=== PATIENT | male | born 1975 | race Caucasian/White ===

== ENCOUNTER 2020-02-17 16:40 | Emergency (ER) | payer MEDICAID, SELFPAY ==
[2020-02-17 20:14] VITALS: BP 113/75; PULSE 52; RESP 16; TEMP 36.6; O2SAT 100; BMI 23.8
[2020-02-17 20:29] VITALS: BP 113/75; PULSE 52; RESP 16; TEMP 36.6; O2SAT 100; BMI 23.8
--- NOTE | 2020-02-17 21:30 | CT_ITS ---
EXAMINATION: CT ABDOMEN AND PELVIS WITH CONTRAST CLINICAL INFORMATION: Abdominal pain. History of liver cancer. COMPARISON: MRI from 05/30/2012. TECHNIQUE: Multidetector volumetric images were obtained from the superior aspect of the liver through the pubic symphysis following administration 85 mL of Omnipaque 350 intravenous contrast. Sagittal and coronal reformatted images were obtained on the technologist's workstation. Oral contrast: No This CT examination was performed using dose optimization techniques as appropriate, variously including the following: *Automated exposure control *Adjustment of mA and/or kV according to patient size (this includes techniques or standardized protocols for targeted exams where dose is matched to indication/reason for exam; i.e. extremities or head) *Use of iterative reconstruction technique DLP: 666 mGy-cm FINDINGS: LUNG BASES: The lung bases are clear. Elevated right hemidiaphragm. The visualized cardiac structures are unremarkable. LIVER, GALLBLADDER, AND BILIARY TREE: The patient appears to be status post resection of the right lobe of the liver. Mild intrahepatic biliary ductal dilatation noted. The portal vein is patent. There is a small amount of pneumobilia. No focal hepatic mass identified. There is moderate volume ascites. Additional patchy appearance in the right upper quadrant fat admixed with the ascites could also represent additional fluid versus carcinomatosis. The gallbladder is absent. PANCREAS: Pancreas ductal dilatation noted, measuring 0.5 cm. No focal pancreatic abnormality identified. SPLEEN: The spleen is enlarged measuring 14 cm in CC dimension. No focal lesion. ADRENAL GLANDS: Unremarkable. KIDNEYS AND URETERS: The kidneys are normal in size, shape, and attenuation. No hydronephrosis, hydroureter, or calculi seen. No perinephric stranding. BLADDER: Unremarkable. GASTROINTESTINAL TRACT: The stomach is decompressed with no gross abnormality. Normal caliber small bowel. There is no obstruction. There is a partial colonic resection with right upper quadrant enterocolic anastomosis. Mild wall thickening suggested of the descending and sigmoid colon. No free intraperitoneal air. ABDOMINAL WALL: No significant hernia. Moderate anasarca. LYMPH NODES: Normal. VASCULAR: Normal caliber aorta. Minimal atherosclerotic calcification noted. Varices are seen throughout the abdomen. Paraesophageal varices noted. PELVIC VISCERA: The prostate and seminal vesicles are unremarkable. OSSEOUS STRUCTURES: Nonspecific lucencies are seen scattered in the osseous structures. This is particularly evident in the iliac bones. There are degenerative changes noted at L5-S1 with disc space narrowing and vacuum disc phenomenon. Small osteophytes noted. CT/CT abdomen pelvis w con IMPRESSION: 1. Moderate volume ascites. Partial hepatectomy. Mild intrahepatic biliary ductal dilatation. Pancreatic ductal dilatation. No obstructing lesion is identified. Findings of portal hypertension. 2. There is a somewhat nodular appearance in the right upper quadrant in the area of ascites which could represent additional fluid, although carcinomatosis must be considered. 3. There is mild wall thickening of the left hemicolon. While this could be associated with the portal hypertension, colitis is possible. 4. Nonspecific lucencies are noted in the osseous structures. No priors for comparison. Cannot exclude metastatic disease.
--- NOTE | 2020-02-17 21:33 | ED.ABDPAIN ---
HPI - Abdominal Pain General Chief Complaint: Abdominal Pain Stated Complaint: ABD PAIN Time Seen by Provider: 02/17/20 21:30 History of Present Illness HPI narrative: Patient is a 44-year-old male with a history of liver cancer status post resection at [facility] approximately 2 years ago. Currently not on chemotherapy. Presented today with having 1 day history of nausea with upper abdominal pain. Patient denies any fever or chills. Denies any vomiting. No change in bowel movement. No pain on urination. No coughing or congestion or upper respiratory symptoms. No diaphoresis. Patient from home. Rates the pain as 5/10 nonradiating. No change with food. Related Data Home Medications Medication Instructions Recorded Confirmed Cholestyramine Light PO DAILY 02/18/20 furosemide 40 mg PO DAILY 02/18/20 02/18/20 ursodiol 300 mg PO TID 02/18/20 02/18/20 Previous Rx's Medication Instructions Recorded ondansetron 4 mg PO TID PRN 5 Days #10 tab 02/18/20 Allergies Allergy/AdvReac Type Severity Reaction Status Date / Time cat dander Allergy Mild Sneezing Verified 02/17/20 20:25 dog dander [dogs] Allergy Mild Sneezing Verified 02/17/20 20:24 grass pollen Allergy Mild Sneezing Verified 02/17/20 20:24 Review of Systems Review of Systems Constitutional: No Weight loss, No Fever, No Chills, No Night Sweats, + Fatigue, + Malaise ENT/Mouth: No Hearing loss, No Ear Pain, No Nasal Congestion, No Sinus Pain, No Hoarseness, No sore throat, No Rhinorrhea, No Swallowing Difficulty Eyes: No Eye Pain, No Swelling, No Redness, No Foreign Body, No Discharge, No Vision Changes Cardiovascular: No Chest Pain, No SOB, No Dyspnea on Exertion, No Orthopnea, No Edema, No Palpitations Respiratory: No Cough, No Sputum, No Wheezing, No Smoke Exposure, No Dyspnea Gastrointestinal: Positive Nausea, No Vomiting, No Diarrhea, No Constipation, positive abdominal Pain, No Hematochezia, No Melena Genitourinary: no irregular bleeding, No Dysuria, No Urinary Frequency, No Hematuria, No Urinary Incontinence, No Urgency, No Flank Pain, No Urinary Flow Changes, No Hesitancy Musculoskeletal: No joint pain, No Myalgias, No Joint Swelling Skin: No Skin Lesions, No rash Neuro: No Weakness, No Numbness, No Paresthesias, No Loss of Consciousness, No Dizziness, No Headache Psych: No Anxiety/Panic, No Depression, No SI/HI/AH/VH, No Social Issues, Heme/Lymph: No Bruising, No Bleeding,No Lymphadenopathy Endocrine: No Polyuria, No Polydipsia, No Temperature Intolerance Physical Exam Vital Signs: Vital Signs: Vital Signs Temp Pulse Resp BP Pulse Ox 02/18/20 03:05 56 16 103/63 100 02/18/20 02:00 16 100/60 100 02/18/20 01:14 61 16 102/62 100 02/18/20 00:00 58 16 100/60 99 02/17/20 23:27 53 16 107/68 100 02/17/20 20:29 97.9 F 52 16 113/75 100 02/17/20 20:14 97.9 F 52 16 113/75 100 Body Mass Index 23.8 Appearance: Alert. Oriented X3. No acute distress. Eyes: Pupils equal, round and reactive to light. Positive jaundice ENT: Pharynx normal. Neck: Normal inspection. Neck supple. No lymph nodes noted. No crepitus CVS: Normal heart rate and rhythm. Pulses normal. Normal S1 and S2 Respiratory: No respiratory distress. Breath sounds normal. No Wheezing. No rales Abdomen: Mild epigastric pain with an enlarged liver about 4 fingerbreadths below the costal margin.No rigidity. No distention. good BS x4 Skin: Skin warm and dry. Normal skin color. Normal skin turgor. Extremities: No lower extremity edema. Neurovascular intact to all extremities. No Lacerations. No Rash Neuro: Oriented X 3. No motor deficit. No sensory deficit. Moving all extermities. No slurred speech MDM - Abdominal Pain MDM Narrative Medical decision making narrative: Patient's bilirubin elevated at over 17. Will contact patient's primary oncologist Patient's case discussed with hospitalist team. [place] patient's symptoms is more chronic in nature. Case was also discussed with patient's oncology team at the [facility]. Patient was discharged from [facility] on the . At that time had similar bilirubin. Similar liver function test. They sent him in for possible hernia. CT scan showed no evidence of incarcerated hernia. Patient has no obstruction. No abscess. [facility] feels comfortable following up on an outpatient basis. Will discharge patient home. Lab Data Attestation: I reviewed the patient's lab results. Result diagrams: 02/18/20 01:53 02/17/20 22:10 Labs: Lab Results 02/17/20 02/17/20 02/17/20 Range/Units 22:00 22:10 22:10 WBC (4.8-10.8) X10*3/uL RBC (4.60-5.80) X10*6/uL Hgb (14.0-18.0) g/dl Hct (42-52) % MCV (80-98) fL MCH (27.0-33.0) pg MCHC (31.0-36.0) g/dl RDW (11.0-16.0) % Plt Count (160-400) X10*3/uL MPV (9.4-12.4) fL Immature Gran % (Auto) (0.0-0.4) % Neut % (Auto) (45-73) % Lymph % (Auto) (20-40) % [place] % (Auto) (2-11) % Eos % (Auto) (0-4) % Baso % (Auto) (0-2) % Lymph # (Auto) (1.2-4.9) X10*3/uL [place] # (Auto) (0.1-1.2) X10*3/uL Eos # (Auto) (0.0-0.4) X10*3/uL Baso # (Auto) (0.0-0.2) X10*3/uL Abs Immat Gran (auto) (0.00-0.03) X10*3/uL Absolute Neuts (auto) (2.0-8.3) X10*3/uL Absolute Nucleated RBC (0.0-0.012) X10*3/uL Nucleated RBC % (auto) (0.0-0.2) /100WBC Smear Tech's Comments PT (10.8-13.0) SEC INR (0.9-1.1) Sodium 134 L (135-145) mmol/L Potassium 4.1 (3.3-5.1) mmol/l Chloride 103 (96-108) mmol/L Carbon Dioxide 22 (22-29) mmol/L Anion Gap 13 (12-20) BUN 15 (9-16) mg/dL Creatinine 0.83 (0.5-1.4) mg/dL Estim Creat Clear Calc 106.1 Estimated GFR > 60 Random Glucose 108 (60-115) mg/dL Calcium 8.1 L (8.4-10.2) mg/dL Total Bilirubin 17.8 H (0.0-1.0) mg/dL Direct Bilirubin 12.7 H (0.0-0.5) mg/dL AST 110 H (5-37) U/L ALT 65 H (0-40) U/L Alkaline Phosphatase 371 H (39-117) U/L Ammonia 70 H (13-55) umol/L Total Protein 7.2 (6.5-8.0) g/dL Albumin 2.8 L (3.5-5.0) g/dL Lipase 141 H (8-78) U/L Urine Color YELLOW Urine Appearance CLEAR Urine pH 6.5 (5.0-8.0) Ur Specific [place] 1.020 (1.005-1.025) Urine Protein NEG (NEG-TRACE) MG/DL Urine Glucose (UA) NEG (NEG) MG/DL Urine Ketones NEG (NEG) MG/DL Urine Blood TRACE (NEG) Urine Nitrite NEG (NEG) Ur Leukocyte Esterase NEG (NEG) Urine RBC 0-2 (0) /HPF Urine WBC 0 (0-4) /HPF Ur Squamous Epith Cells NONE /LPF Urine Bacteria NONE /LPF Coronavirus (PCR) (Negative) 02/18/20 02/18/20 02/18/20 Range/Units 01:53 01:53 01:53 WBC 3.2 L (4.8-10.8) X10*3/uL RBC 3.13 L (4.60-5.80) X10*6/uL Hgb 9.6 L (14.0-18.0) g/dl Hct 27.2 L (42-52) % MCV 86.9 (80-98) fL MCH 30.7 (27.0-33.0) pg MCHC 35.3 (31.0-36.0) g/dl RDW 21.8 H (11.0-16.0) % Plt Count 99 L (160-400) X10*3/uL MPV 9.1 L (9.4-12.4) fL Immature Gran % (Auto) 0.0 (0.0-0.4) % Neut % (Auto) 65.1 (45-73) % Lymph % (Auto) 14.0 L (20-40) % [place] % (Auto) 19.0 H (2-11) % Eos % (Auto) 1.3 (0-4) % Baso % (Auto) 0.6 (0-2) % Lymph # (Auto) 0.4 L (1.2-4.9) X10*3/uL [place] # (Auto) 0.6 (0.1-1.2) X10*3/uL Eos # (Auto) 0.0 (0.0-0.4) X10*3/uL Baso # (Auto) 0.0 (0.0-0.2) X10*3/uL Abs Immat Gran (auto) 0.00 (0.00-0.03) X10*3/uL Absolute Neuts (auto) 2.1 (2.0-8.3) X10*3/uL Absolute Nucleated RBC 0.000 (0.0-0.012) X10*3/uL Nucleated RBC % (auto) 0.0 (0.0-0.2) /100WBC Smear Tech's Comments VERIFIED PT 18.8 H (10.8-13.0) SEC INR 1.6 H (0.9-1.1) Sodium (135-145) mmol/L Potassium (3.3-5.1) mmol/l Chloride (96-108) mmol/L Carbon Dioxide (22-29) mmol/L Anion Gap (12-20) BUN (9-16) mg/dL Creatinine (0.5-1.4) mg/dL Estim Creat Clear Calc Estimated GFR Random Glucose (60-115) mg/dL Calcium (8.4-10.2) mg/dL Total Bilirubin (0.0-1.0) mg/dL Direct Bilirubin (0.0-0.5) mg/dL AST (5-37) U/L ALT (0-40) U/L Alkaline Phosphatase (39-117) U/L Ammonia (13-55) umol/L Total Protein (6.5-8.0) g/dL Albumin (3.5-5.0) g/dL Lipase (8-78) U/L Urine Color Urine Appearance Urine pH (5.0-8.0) Ur Specific [place] (1.005-1.025) Urine Protein (NEG-TRACE) MG/DL Urine Glucose (UA) (NEG) MG/DL Urine Ketones (NEG) MG/DL Urine Blood (NEG) Urine Nitrite (NEG) Ur Leukocyte Esterase (NEG) Urine RBC (0) /HPF Urine WBC (0-4) /HPF Ur Squamous Epith Cells /LPF Urine Bacteria /LPF Coronavirus (PCR) NEGATIVE (Negative) Discharge Plan Discharge Clinical Impression: Liver cancer Patient Disposition: Home, Self-Care Prescriptions: New ondansetron 4 mg tablet,disintegrating 4 mg PO TID PRN (Reason: nausea and vomiting) 5 Days Qty: 10 RF: 0 No Action furosemide 40 mg 40 mg PO DAILY RF: 0 ursodiol 300 mg PO TID RF: 0 Cholestyramine Light PO DAILY RF: 0 Referrals: Physician,Unknown [Primary Care Provider] - 2 days [facility] Past Medical History Medical History Liver cancer Surgical History H/O resection of liver Social History Social History Alcohol intake: never Smoking Status: Never smoker Use of substances other than those prescribed or required for medical reasons: No Advance Directives: No Advance Directives Information Provided: Yes
--- NOTE | 2020-02-17 21:36 | XR_ITS ---
EXAMINATION: XR CHEST CLINICAL INFORMATION: Abdominal pain COMPARISON: Chest radiograph 09/04/2007 TECHNIQUE: Frontal view of the chest was obtained. FINDINGS: Low lung volumes. Atelectasis in the lung bases. No dense consolidation. No pneumothorax or pleural effusion appreciated. Gas-filled loops of bowel are present in the right upper quadrant. XR/XR chest 1V IMPRESSION: Low lung volumes. No acute cardiopulmonary process. Nonspecific gas-filled loops of bowel in the right upper quadrant in the expected location of the liver. No gross free air.
[2020-02-17] MEDS: 0.9 % Sodium Chloride 1,000 ML 999 ML IVCONT (21:56)
[2020-02-17 22:21] LABS: Glucose Urine UA NEG (NEG); Leukocyte Esterase Urine NEG (NEG); Nitrite Urine NEG (NEG); PH 6.5 (5.0-8.0); Urine Blood TRACE (NEG); Urine Ketones NEG (NEG); Urine Protein NEG (NEG-TRACE)
[2020-02-17 22:24] LABS: Appearance Urine CLEAR; Color Urine YELLOW
[2020-02-17 22:33] LABS: Ammonia 70 umol/L (13-55)
[2020-02-17 22:42] LABS: Alanine Aminotransferase 65 U/L (0-40); Albumin Level 2.8 g/dL (3.5-5.0); Alkaline Phosphatase 371 U/L (39-117); Anion Gap 13 (12-20); Aspartate Amino Transferase 110 U/L (5-37); Bilirubin Direct 12.7 mg/dL (0.0-0.5); Bilirubin Total 17.8 mg/dL (0.0-1.0); Blood Urea Nitrogen 15 mg/dL (9-16); Calcium 8.1 mg/dL (8.4-10.2); Carbon Dioxide 22 mmol/L (22-29); Chloride 103 mmol/L (96-108); Creatinine Clr Calc Pharmacy 106.1; Estimated Glomerular Filt Rate > 60; Glucose Random 108 mg/dL (60-115); Lipase 141 U/L (8-78); Potassium 4.1 mmol/l (3.3-5.1); Sodium 134 mmol/L (135-145); Total Protein 7.2 g/dL (6.5-8.0)
[2020-02-17 22:50] LABS: RBC Urine 0-2 /HPF (0); WBC Urine 0 /HPF (0-4)
[2020-02-17] MEDS: iohexoL 350 MG/ML 100 ML INFUS..BTL IV (23:20)
[2020-02-17 23:27] VITALS: BP 107/68; PULSE 53; RESP 16; O2SAT 100
[2020-02-18] VITALS: BP 100/60; PULSE 58; RESP 16; O2SAT 99
[2020-02-18] MEDS: HYDROmorphone HCl 0.5 MG/0.5 ML SYRINGE IVPUSH (01:12)
[2020-02-18 01:14] VITALS: BP 102/62; PULSE 61; RESP 16; O2SAT 100
[2020-02-18 02:00] VITALS: BP 100/60; RESP 16; O2SAT 100
[2020-02-18 02:00] LABS: Basophils Percent Auto 0.6 % (0-2); Eosinophils Percent Auto 1.3 % (0-4); Hematocrit 27.2 % (42-52); Hemoglobin 9.6 g/dl (14.0-18.0); Lymphocytes Absolute Auto 0.4 X10*3/uL (1.2-4.9); MANUAL DIFF FLAG SCAN; Mean Corpuscular HGB Conc 35.3 g/dl (31.0-36.0); Mean Corpuscular Hemoglobin 30.7 pg (27.0-33.0); Mean Corpuscular Volume 86.9 fL (80-98); Mean Platelet Volume 9.1 fL (9.4-12.4); Monocytes Absolute Auto 0.6 X10*3/uL (0.1-1.2); Neutrophils Absolute Auto 2.1 X10*3/uL (2.0-8.3); Neutrophils Percent Auto 65.1 % (45-73); Red Blood Count 3.13 X10*6/uL (4.60-5.80); Red Cell Distribution Width 21.8 % (11.0-16.0); SCAN SMEAR FLAG 1; White Blood Count 3.2 X10*3/uL (4.8-10.8)
[2020-02-18 02:08] LABS: INTERNATIONAL NORM RATIO 1.6 (0.9-1.1); Prothrombin Time 18.8 SEC (10.8-13.0)
[2020-02-18 02:19] LABS: Platelet Count 99 X10*3/uL (160-400)
[2020-02-18 02:20] LABS: SLIDE REVIEW VERIFIED
[2020-02-18 02:54] LABS: SARS COV2 PCR INHOUSE NEGATIVE (Negative)
[2020-02-18 03:05] VITALS: BP 103/63; PULSE 56; RESP 16; O2SAT 100
--- NOTE | 2020-02-18 03:37 | PC.NURSE ---
STILL WAITING TO HEAR BACK FROM THE [facility].
--- NOTE | 2020-02-18 04:08 | PC.NURSE ---
PT DISCHARGED AT 0358 SYSTEM WOUND NOT ALLOW THIS RN TO ENTER THE DATE AND TIME TO DISCHARGE. BAIT MAKER MADE AWARE.
--- NOTE | 2020-02-18 07:47 | ECG_ITS ---
Test Reason : SHORTNESS OF BREATH Blood Pressure : / mmHG Vent. Rate : 053 BPM Atrial Rate : 053 BPM P-R Int : 138 ms QRS Dur : 082 ms QT Int : 462 ms P-R-T Axes : 033 -14 000 degrees QTc Int : 433 ms Sinus bradycardia Otherwise normal ECG When compared with ECG of 04-SEP-2007 19:55, No significant change was found Referred By: Ana Santos Electronically Signed By:MOOK CHISHOLM MD
== END 2020-02-18 04:00 | disposition home or self-care (01) ==
PROVIDERS: Emergency Provider Emergency Medicine Emergency Medical Services
DX: C22.8 Malignant neoplasm of liver, primary, unspecified as to type (principal); R10.9 Unspecified abdominal pain; Z20.828 Contact with and (suspected) exposure to other viral communicable diseases; Z79.899 Other long term (current) drug therapy
CPT/HCPCS: 36415; 71045; 74177; 80048; 80076; 81001; 82140; 83690; 85025; 85610; 87635; 93005; 96361; 96374; 99284; J1170

== ENCOUNTER 2020-07-15 18:25 | Emergency (ER) | payer MEDICAID, SELFPAY | END 2020-07-15 20:42 | disposition left against medical advice (07) | PROVIDERS: Emergency Provider Emergency Medicine | DX: R79.89 Other specified abnormal findings of blood chemistry (principal) ==